=== PATIENT | female | born 2000 | race Caucasian/White ===

== ENCOUNTER 2020-05-20 15:52 | Emergency (ER) | payer BC ==
[2020-05-20 16:04] VITALS: RESP 18
[2020-05-20] MEDS ORDERED: FAMOTIDINE 20 MG TAB PO STA (16:22)
[2020-05-20] MEDS ORDERED: DEXAMETHASONE SOD PHOSPHATE 10 MG/ML 1 ML VIAL IM STA (16:22)
[2020-05-20] MEDS ORDERED: diphenhydrAMINE 25 MG CAP PO STA (16:22)
[2020-05-20] MEDS ORDERED: FAMOTIDINE 20 MG/2 ML VIAL IV STA (16:24)
[2020-05-20] MEDS ORDERED: DEXAMETHASONE SOD PHOSPHATE 10 MG/ML 1 ML VIAL IV STA (16:24)
[2020-05-20] MEDS ORDERED: SODIUM CHLORIDE 0.9% 500 ML 500 ML IV ONE (16:24)
[2020-05-20] MEDS ORDERED: diphenhydrAMINE 50 MG/ML 1 ML VIAL IVP STA (16:24)
[2020-05-20 16:47] LABS: Basophils % (A) 0 %; Eosinophils # (A) 0.3 k/uL (0-0.7); Eosinophils % (A) 2 %; HCT 43.2 % (34.0-46.0); HGB 14.3 gm/dL (11.4-16.0); Lymphocytes % (A) 6 %; MCH 29.7 pg (25.0-35.0); MCV 89.9 fL (80.0-100.0); Mean Platelet Volume 7.3; Monocytes # (A) 0.2 k/uL (0-1.0); Monocytes % (A) 1 %; Neutrophils % (A) 91 %; Platelet Count 387 k/uL (150-450); RBC 4.81 m/uL (3.80-5.40); RDW 12.4 % (11.5-15.5); WBC 16.6 k/uL (4.0-11.0)
--- NOTE | 2020-05-20 16:54 | ED ---
General Adult HPI - General Chief complaint: Skin/Abscess/Foreign Body Stated complaint: Allergic Reaction Time Seen by Provider: 05/20/20 16:09 Source: patient, RN notes reviewed, old records reviewed Mode of arrival: ambulatory Limitations: no limitations - History of Present Illness Initial comments: 19 female presenting for evaluation of generalized rash. Patient developed a rash several days prior after finishing a course of a Zithromax for strep pharyngitis. Patient and her mother believes it was either this antibiotic or a pomegranate that the patient had eaten which she has not eaten in many years. She's had diffuse raised erythematous rash consistent with hives over her arms and torso, legs. No difficulty breathing. No tongue or lip swelling that she has had some mild nausea. She states that cold showers to help improve her symp toms. She's been on steroids, Medrol Dosepak as well as Benadryl every 4 hours with only minimal relief. - Related Data Home Medications Medication Instructions Recorded Confirmed Cetirizine HCl [Zyrtec] 10 mg PO DAILY 05/20/20 05/20/20 Escitalopram [Lexapro] 5 mg PO HS 05/20/20 05/20/20 Tacrolimus [Protopic] 1 applic TOPICAL BID PRN 05/20/20 05/20/20 Triamcinolone 0.1% Cream [Kenalog 1 applicatio TOPICAL BID PRN 05/20/20 05/20/20 0.1% Cream] diphenhydrAMINE HCL [Benadryl] 50 mg PO Q4H 05/20/20 05/20/20 methylPREDNISolone [Medrol Dose See Taper PO DIRECTED 05/20/20 05/20/20 Pack] Allergies Allergy/AdvReac Type Severity Reaction Status Date / Time Penicillins Allergy Unknown Verified 05/20/20 17:28 Review of Systems ROS Statement: Those systems with pertinent positive or pertinent negative responses have been documented in the HPI. ROS Other: All systems not noted in ROS Statement are negative. Past Medical History Past Medical History: Asthma History of Any Multi-Drug Resistant Organisms: None Reported Past Surgical History: Ear Surgery Past Psychological History: No Psychological Hx Reported Smoking Status: Never smoker Past Alcohol Use History: None Reported Past Drug Use History: None Reported General Exam Limitations: no limitations General appearance: alert, in no apparent distress Head exam: Present: atraumatic, normocephalic Eye exam: Present: normal appearance, PERRL ENT exam: Present: normal exam Neck exam: Present: normal inspection. Absent: tenderness, meningismus Respiratory exam: Present: normal lung sounds bilaterally. Absent: respiratory distress, wheezes Cardiovascular Exam: Present: regular rate, normal rhythm GI/Abdominal exam: Present: soft. Absent: distended, tenderness, guarding, rebound Extremities exam: Present: normal capillary refill. Absent: pedal edema, joint swelling Neurological exam: Present: alert, oriented X3, CN II-XII intact. Absent: motor sensory deficit Psychiatric exam: Present: normal affect, normal mood Skin exam: Present: erythema, urticaria (Diffuse urticarial rash) Course Vital Signs 05/20/20 16:01 Temperature 98.1 F Pulse Rate 115 H Respiratory 18 Rate Blood Pressure 128/74 O2 Sat by Pulse 98 Oximetry Medical Decision Making - Medical Decision Making After IV steroids, Benadryl and Pepcid. Patient's rash is nearly completely resolved. She has no airway swelling, no stridor, no respiratory distress. She is feeling much better. She will continue Benadryl at home. She will follow with her primary care physician. She will return with any worsening or changing symptoms. - Lab Data Result diagrams: 05/20/20 16:36 05/20/20 16:36 Lab Results 05/20/20 05/20/20 05/20/20 Range/Units 16:36 16:36 16:36 WBC 16.6 H (4.0-11.0) k/uL RBC 4.81 (3.80-5.40) m/uL Hgb 14.3 (11.4-16.0) gm/dL Hct 43.2 (34.0-46.0) % MCV 89.9 (80.0-100.0) fL MCH 29.7 (25.0-35.0) pg MCHC 33.0 (31.0-37.0) g/dL RDW 12.4 (11.5-15.5) % Plt Count 387 (150-450) k/uL MPV 7.3 Neutrophils % 91 % Lymphocytes % 6 % Monocytes % 1 % Eosinophils % 2 % Basophils % 0 % Neutrophils # 15.0 H (1.3-7.7) k/uL Lymphocytes # 1.0 (1.0-4.8) k/uL Monocytes # 0.2 (0-1.0) k/uL Eosinophils # 0.3 (0-0.7) k/uL Basophils # 0.0 (0-0.2) k/uL PT 10.4 (9.0-12.0) sec INR 1.0 (<1.2) APTT 23.9 (22.0-30.0) sec Sodium 135 L (137-145) mmol/L Potassium 4.1 (3.5-5.1) mmol/L Chloride 102 (98-107) mmol/L Carbon Dioxide 24 (22-30) mmol/L Anion Gap 9 mmol/L BUN 11 (7-17) mg/dL Creatinine 0.63 (0.52-1.04) mg/dL Est GFR (CKD-EPI)AfAm >90 (>60 ml/min/1.73 sqM) Est GFR (CKD-EPI)NonAf >90 (>60 ml/min/1.73 sqM) Glucose 131 H (74-99) mg/dL Calcium 9.5 (8.4-10.2) mg/dL Total Bilirubin 0.5 (0.2-1.3) mg/dL AST 27 (14-36) U/L ALT 14 (4-34) U/L Alkaline Phosphatase 67 (38-126) U/L Total Protein 7.7 (6.3-8.2) g/dL Albumin 4.4 (3.5-5.0) g/dL Disposition Clinical Impression: Urticaria, Food allergy, Drug allergy Disposition: HOME SELF-CARE Condition: Good Instructions (If sedation given, give patient instructions): Food Allergy (ED), General Allergic Reaction (ED), Urticaria (ED) Is patient prescribed a controlled substance at d/c from ED?: No Referrals: Ann Moyer DO [Primary Care Provider] - 1-2 days Time of Disposition: 17:52
[2020-05-20 16:55] LABS: ALT 14 U/L (4-34); AST 27 U/L (14-36); African American GFR (CKD) >90 (>60 ml/min/1.73 sqM); Albumin 4.4 g/dL (3.5-5.0); Alkaline Phosphatase 67 U/L (38-126); Anion Gap 9 mmol/L; Blood Urea Nitrogen 11 mg/dL (7-17); Calcium 9.5 mg/dL (8.4-10.2); Carbon Dioxide 24 mmol/L (22-30); Chloride 102 mmol/L (98-107); Glucose 131 mg/dL (74-99); Non-African American GFR(CKD) >90 (>60 ml/min/1.73 sqM); Potassium 4.1 mmol/L (3.5-5.1); Sodium 135 mmol/L (137-145); Total Bilirubin 0.5 mg/dL (0.2-1.3); Total Protein 7.7 g/dL (6.3-8.2)
[2020-05-20 17:04] LABS: Partial Thromboplastin Time 23.9 sec (22.0-30.0); Prothrombin Time 10.4 sec (9.0-12.0)
[2020-05-20 17:56] VITALS: BP 117/56; PULSE 108; TEMP 98
== END 2020-05-20 18:15 | disposition home or self-care (01) ==
LOC: EC 15:52
DX: L50.9 Urticaria, unspecified (principal); T36.3X5A Adverse effect of macrolides, initial encounter; T78.1XXA Other adverse food reactions, not elsewhere classified, initial encounter; Z88.0 Allergy status to penicillin
CPT/HCPCS: 36415; 80053; 85025; 85610; 85730; 99283; 96374; 96375 ×2; 96361; J1200; J1100